=== PATIENT | male | born 1995 | race Caucasian/White ===

== ENCOUNTER 2023-08-31 16:39 | Outpatient (REF) | payer BC, SELFPAY ==
[2023-08-31 20:14] LABS: Abs Immature Grans 0.01 10^3/uL (0.0-0.06); Absolute Basophil Count 0.01 10^3/uL (0.0-0.2); Absolute Eosinophil Count 0.05 10^3/uL (0.0-0.7); Absolute Lymphocyte Count 2.04 10^3/uL (1.2-3.4); Absolute Monocyte Count 0.55 10^3/uL (0.1-0.8); Absolute Neutrophil Count 3.92 10^3/uL (1.2-6.7); Basophils % 0.2; Eosinophils % 0.8; HCT 43.8 % (40.0-50.0); HGB 15.2 g/dL (13.5-17.5); Immature Grans % 0.2; MCH 29.5 pg (27.0-33.0); MCHC 34.7 % (32.0-36.0); MCV 85 fL (80-95); MPV 9.1 fL (8.0-11.0); Monocytes % 8.4; Neutrophils % 59.4; Platelet Count 237 10^3/uL (130-400); RBC 5.15 10^6/uL (4.36-5.78); RDW 11.8 % (11.8-14.1); RDW-SD 36.4 fL; WBC 6.58 10^3/uL (4.4-10.8)
[2023-08-31 20:34] LABS: ALT 43 U/L (16-63); AST 19 U/L (15-37); Albumin 4.4 g/dL (3.4-5.0); Alkaline Phosphatase 42 U/L (46-116); Anion Gap 8.2 mmol/L (3-11); BUN 20 mg/dL (7-18); Bilirubin, Total 0.8 mg/dL (0.2-1.0); CO2 27.8 mmol/L (21.0-32.0); Calcium 9.4 mg/dL (8.5-10.1); Chloride 102 mmol/L (98-107); Estimated GFR 106.45 (mL/min/1.73m2); Glucose 111 mg/dL (74-106); Potassium 3.8 mmol/L (3.5-5.1); Sodium 138 mmol/L (136-145); Total Protein 7.7 g/dL (6.4-8.2)
[2023-08-31 20:54] LABS: Vitamin D 25 Total 21.8 ng/mL (30-100)
[2023-09-01 19:06] LABS: CRP, High Sensitivity 1.16 mg/L (See Note)
== END 2023-08-31 16:40 | disposition home or self-care (01) ==
LOC: NCHCN 16:39
PROVIDERS: Visit Provider Student in an Organized Health Care Education/Training Program
DX: K50.90 Crohn's disease, unspecified, without complications (principal)
CPT/HCPCS: 80053; 82306; 86141; 85025

== ENCOUNTER 2023-11-10 15:20 | Outpatient (REF) | payer BC, SELFPAY ==
[2023-11-10 16:50] LABS: Vitamin D 25 Total 31.9 ng/mL (30-100)
== END 2023-11-10 15:21 | disposition home or self-care (01) ==
LOC: NCHCN 15:20
PROVIDERS: PCP Student in an Organized Health Care Education/Training Program; Visit Provider Student in an Organized Health Care Education/Training Program
DX: E55.9 Vitamin D deficiency, unspecified (principal)
CPT/HCPCS: 82306

== ENCOUNTER 2024-04-12 14:49 | Outpatient (REF) | payer BC, SELFPAY ==
[2024-04-12 15:52] LABS: Abs Immature Grans 0.03 10^3/uL (0.0-0.06); Absolute Basophil Count 0.02 10^3/uL (0.0-0.2); Absolute Eosinophil Count 0.12 10^3/uL (0.0-0.7); Absolute Lymphocyte Count 1.86 10^3/uL (1.2-3.4); Absolute Monocyte Count 0.98 10^3/uL (0.1-0.8); Absolute Neutrophil Count 3.01 10^3/uL (1.2-6.7); Basophils % 0.3 %; HCT 41.5 % (40.0-50.0); HGB 14.2 g/dL (13.5-17.5); Immature Grans % 0.5 %; Lymphocytes % 30.9 %; MCH 29.5 pg (27.0-33.0); MCHC 34.2 % (32.0-36.0); MCV 86 fL (80-95); MPV 9.4 fL (8.0-11.0); Monocytes % 16.3 %; Platelet Count 169 10^3/uL (130-400); RBC 4.81 10^6/uL (4.36-5.78); RDW 12.4 % (11.8-14.1); WBC 6.02 10^3/uL (4.4-10.8)
[2024-04-12 16:03] LABS: ESR 14 mm/hr (0-15)
[2024-04-12 16:09] LABS: ALT 32 U/L (16-63); AST 17 U/L (15-37); Albumin 3.8 g/dL (3.4-5.0); Alkaline Phosphatase 48 U/L (46-116); Anion Gap 8.4 mmol/L (3-11); BUN 17 mg/dL (7-18); Bilirubin, Total 1.06 mg/dL (0.2-1.0); C-Reactive Protein 0.66 mg/dL (<or=0.5); CO2 28.6 mmol/L (21.0-32.0); CREATININE 1.2 mg/dL (0.70-1.30); Calcium 8.8 mg/dL (8.5-10.1); Chloride 102 mmol/L (98-107); Glucose 54 mg/dL (74-106); Potassium 3.9 mmol/L (3.5-5.1); Sodium 139 mmol/L (136-145); Total Protein 7.1 g/dL (6.4-8.2)
[2024-04-12 17:07] LABS: Vitamin B12 792 pg/mL (193-986); Vitamin D 25 Total 41.8 ng/mL (30-100)
[2024-04-12 17:42] LABS: C Diff PCR Negative (Negative)
[2024-04-13 23:16] LABS: Campylobacter PCR Negative (Negative); Salmonella PCR Negative (Negative); Shiga Toxin PCR Negative (Negative); Shigella/Enteroinvasive Ecoli Negative (Negative)
[2024-04-17 20:36] LABS: Calprotectin 1660 mcg/g
== END 2024-04-12 14:50 | disposition home or self-care (01) ==
LOC: NCHCN 14:49
PROVIDERS: PCP Student in an Organized Health Care Education/Training Program; Visit Provider Student in an Organized Health Care Education/Training Program
DX: K50.90 Crohn's disease, unspecified, without complications (principal)
CPT/HCPCS: 80053; 82306; 85652; 87329; 87493; 87505; 82607; 83993; 85025; 86140; 87177

== ENCOUNTER 2024-05-30 16:19 | Outpatient (REF) | payer BC, SELFPAY ==
[2024-05-30 19:40] LABS: Abs Immature Grans 0.01 10^3/uL (0.0-0.06); Absolute Basophil Count 0.02 10^3/uL (0.0-0.2); Absolute Eosinophil Count 0.22 10^3/uL (0.0-0.7); Absolute Lymphocyte Count 2.49 10^3/uL (1.2-3.4); Absolute Monocyte Count 0.66 10^3/uL (0.1-0.8); Absolute Neutrophil Count 5.13 10^3/uL (1.2-6.7); Basophils % 0.2 %; Eosinophils % 2.6 %; HCT 42.6 % (40.0-50.0); HGB 14.3 g/dL (13.5-17.5); Immature Grans % 0.1 %; Lymphocytes % 29.2 %; MCH 29.5 pg (27.0-33.0); MCHC 33.6 % (32.0-36.0); MCV 88 fL (80-95); MPV 9.7 fL (8.0-11.0); Monocytes % 7.7 %; Neutrophils % 60.2 %; Platelet Count 212 10^3/uL (130-400); RBC 4.84 10^6/uL (4.36-5.78); RDW-SD 38.8 fL; WBC 8.53 10^3/uL (4.4-10.8)
[2024-05-30 19:44] LABS: ESR 7 mm/hr (0-15)
[2024-05-30 19:59] LABS: ALT 77 U/L (16-63); AST 35 U/L (15-37); Albumin 3.9 g/dL (3.4-5.0); Alkaline Phosphatase 52 U/L (46-116); Anion Gap 8.9 mmol/L (3-11); BUN 23 mg/dL (7-18); Bilirubin, Total 0.87 mg/dL (0.2-1.0); CO2 27.1 mmol/L (21.0-32.0); Calcium 8.9 mg/dL (8.5-10.1); Chloride 106 mmol/L (98-107); Estimated GFR 105.79 (mL/min/1.73m2); Glucose 91 mg/dL (74-106); Sodium 142 mmol/L (136-145); Total Protein 7.2 g/dL (6.4-8.2)
[2024-05-30 20:26] LABS: C-Reactive Protein < 0.50 mg/dL (<or=0.5)
== END 2024-05-30 16:20 | disposition home or self-care (01) ==
LOC: NCHCN 16:19
PROVIDERS: PCP Student in an Organized Health Care Education/Training Program; Visit Provider Student in an Organized Health Care Education/Training Program
DX: K50.90 Crohn's disease, unspecified, without complications (principal)
CPT/HCPCS: 80053; 85652; 85025; 86140